=== PATIENT | male | born 1985 | race Asian ===

== ENCOUNTER 2022-07-15 08:20 | Emergency (ER) | payer BC ==
[~2022-07-15] VITALS: Ht 170.2 cm; Wt 79.4 kg
[2022-07-15 08:30] VITALS: BP_SYST 148
--- NOTE | 2022-07-15 08:30 | NUR ---
PT BIB AWAKE AND ALERT AOX4, NO SOB OR DISTRESS. PT C/O PAIN TO R TESTICLE X4 DAYS. PT STATES PAIN TO BE 7/10. PT DENIES TRAUMA. PT DENIES N/V/D. PT DENIES HX AND SX. PT DENIES PAIN AND DIFFICULTY TO URINATION. PT AFEBRILE.
--- NOTE | 2022-07-15 08:30 | NUR ---
Placed in room 03 . Placed on monitor and storage bin tender, blood pressure machine and pulse oximeter. To gown for exam. Side rails up. Report given to MARLIN CLIFTON.
--- NOTE | 2022-07-15 08:31 | NUR ---
MD DR COLEMAN AT BEDSIDE
--- NOTE | 2022-07-15 08:40 | NUR ---
PT TAKEN TO CT
[2022-07-15] MEDS ORDERED: KETOROLAC TROMETHAMINE 30 MG VIAL IM ONE (09:30)
[2022-07-15] MEDS ORDERED: levoFLOXacin 500 MG TABLET PO ONE (10:15)
[2022-07-15] MEDS ORDERED: cefTRIAXone 500 MG in LIDOCAINE 1%, 20 ML MDV 1 ML IM ONE (10:15)
[2022-07-15] MEDS ORDERED: LEVO750T64 PO (10:18)
[2022-07-15] MEDS ORDERED: ACET325T53 PO (10:19)
[2022-07-15] MEDS ORDERED: NAPR-1172 PO (10:19)
[2022-07-15] MEDS ORDERED: OXYC-128 PO (10:19)
--- NOTE | 2022-07-15 10:45 | NUR ---
Patient given written and verbal discharge instructions and verbalizes understanding. ER MD DR COLEMAN discussed with patient the results and treatment provided. Patient in stable condition. ID arm band removed. Rx of TYLENOL, LEVAQUIN, NAPROXEN , PERCOCET given. Patient educated on pain management and to follow up with PMD. Pain Scale 4/10. Opportunity for questions provided and answered. Medication side effect fact sheet provided.
[2022-07-15 11:04] VITALS: BP_SYST 135
[2022-07-15 11:32] LABS: BILIRUBIN,URINE NEGATIVE (NEGATIVE); BLOOD, URINE NEGATIVE (NEGATIVE); CLARITY/URINE CLEAR (CLEAR); COLOR,URINE YELLOW (YELLOW); GLUCOSE,URINE NEGATIVE (NEGATIVE); KETONES,URINE NEGATIVE (NEGATIVE); LEUKOCYTE ESTERASE ,URINE TRACE (NEGATIVE); NITRITE, URINE NEGATIVE (NEGATIVE); PH,URINE 5.5 (5.0-8.0); PROTEIN URINE NEGATIVE (NEGATIVE); UROBILINOGEN,URINE 0.2 (0.2-1.0)
[2022-07-15 11:43] LABS: BACTERIA,URINE FEW /HPF (None Seen); MUCUS,URINE 1+ /LPF (None Seen); RBC,URINE 0-3 /HPF (0-3)
== END 2022-07-15 10:45 | disposition home or self-care (01) ==
LOC: SED 08:20
DX: N45.1 Epididymitis (principal); I86.1 Scrotal varices; N50.811 Right testicular pain; Z79.899 Other long term (current) drug therapy
CPT/HCPCS: 99285; 81000; 87086; 36415; 76870; 96372; 87491; J0696; J1885